=== PATIENT | female | born 1990 | race Caucasian/White ===

== ENCOUNTER 2016-05-01 18:39 | Emergency (ER) | payer SELFPAY ==
[~2016-05-01] VITALS: Ht 167.6 cm; Wt 99.3 kg
[~2016-05-01 18:39] MED LIST: CLON0.5T3 PO; CYCL10TA2 PO; ESOM40CA PO; NITR100C62 PO; PREN1TAB58 PO; VENL150C PO
[2016-05-01 19:36] LABS: BILIRUBIN,URINE NEGATIVE (NEG); GLUCOSE,URINE NEGATIVE (NEG); NITRITE,URINE NEGATIVE (NEG); PH,URINE 6.5; PROTEIN,URINE NEGATIVE (NEG-TRACE); UROBILINOGEN,URINE 0.2 mg/dL (0.2 mg/dL)
[2016-05-01 19:37] LABS: NEG OBC UR NEG; POS OBC UR POS
[2016-05-01 19:50] LABS: BACTERIA,URINE MODERATE /HPF (0-FEW); RBC,URINE RARE /HPF (0-2); SQUAMOUS EPITHELIAL CELL,UR OCC /LPF
--- NOTE | 2016-05-01 20:56 | RAD ---
PROCEDURE Endovaginal OB ultrasound. HISTORY Bilateral pelvic pain for 4 days. TECHNIQUE Endovaginal imaging was performed. COMPARISON None. FINDINGS Uterus measures 10.1 centimeters in length. The uterus is retroflexed. Cervical length is estimated at 3.19 centimeters. Left ovary measures 2.1 x 3.9 x 1.9 centimeters and demonstrates small follicle. Right ovary measures 2.7 x 1.5 x 1.5 centimeters and is unremarkable. Both ovaries are without evidence of torsion. No adnexal masses are seen. Single live intrauterine is identified with gestational sac, yolk sac, and embryonic pole identified. The mean crown-rump length is 1.03 centimeters corresponding to 7 weeks 1 day. Estimated date of delivery based on this measurement is December 17, 2016. IMPRESSION 1. Single live intrauterine . Average ultrasound age is 7 weeks 1 day. Estimated date of delivery is December 17, 2016. 2. No acute abnormality is identified. Electronically signed by: Johnnie Monk MD (May 01, 2016 20:54:19)
[2016-05-01] MEDS ORDERED: ACETAMINOPHEN 500 MG TABLET PO ONE (21:00)
--- NOTE | 2016-05-01 21:00 | PHYS DOC ---
Past Medical History Past Medical History: Anxiety, Depression, Other Additional Past Medical Histor: alcohol syndrome, PCOS, ovarian cyst, PANIC ATTACKS Past Surgical History: Other Additional Past Surgical Histo: left knee surgery, D&C Alcohol Use: None Drug Use: None Adult General Chief Complaint Chief Complaint: PELVIC PAIN HPI HPI 22-year-old female who is in the first trimester of her who presents with increasing vaginal discharge that is described as a thick white discharge the last several days as well as suprapubic cramping. She denies any vaginal bleeding. She denies any dysuria. She also states subjective lip discomfort that she describes a burning sensation. She denies any history of herpes. She states her lips have been very painful when she tries to eat or drink. She denies any nausea or vomiting she does states she's been able to stay hydrated with her symptoms. She does not appear to be in any distress whatsoever. She has had ultrasounds for this that have been normal per her. She follows up with Dr. Dc and has an appointment tomorrow but decided to come here for evaluation tonight because of her symptoms. She rates her abdominal pain a 6/10 on the pain scale. Review of Systems Review of Systems Constitutional: Denies fever or chills [] Eyes: Denies change in visual acuity, redness, or eye pain [] HENT: Denies nasal congestion or sore throat [] Respiratory: Denies cough or shortness of breath [] Cardiovascular: No additional information not addressed in HPI [] GI: Has abdominal pain, denies nausea, denies vomiting, denies bloody stools or diarrhea [] : Denies dysuria or hematuria [] Musculoskeletal: Denies back pain or joint pain [] Integument: Denies rash or skin lesions [] Neurologic: Denies headache, focal weakness or sensory changes [] Endocrine: Denies polyuria or polydipsia [] Current Medications Current Medications Current Medications Medications (Trade) Dose Ordered Sig/Sean Start Time Stop Time Status Last Admin Dose Admin Acetaminophen (Tylenol) 1,000 mg 1X ONCE 05/01/16 21:00 05/01/16 21:01 DC 05/01/16 21:08 1,000 MG Allergies Allergies Allergies Coded Allergies Type Severity Reaction Last Updated Verified Sulfa (Sulfonamide Antibiotics) Allergy Severe rash, throat swelling 04/01/16 Yes ciprofloxacin Allergy Severe rash, throat swelling 04/01/16 Yes Physical Exam Physical Exam Constitutional: Well developed, well nourished, no acute distress, non-toxic appearance. [] HENT: Normocephalic, atraumatic, bilateral external ears normal, oropharynx moist, no oral exudates, nose normal. [] Eyes: PERRLA, EOMI, conjunctiva normal, no discharge. [] Neck: Normal range of motion, no tenderness, supple, no stridor. [] Cardiovascular:Heart rate regular rhythm, no murmur [] Lungs & Thorax: Bilateral breath sounds clear to auscultation [] Abdomen: Bowel sounds normal, soft, moderate suprapubic tenderness to palpation , no masses, no pulsatile masses. [] Skin: Warm, dry, no erythema, no rash. [] Pelvic exam: Pelvic exam reveals a closed cervical os with a white discharge. There is no CMT or adnexal tenderness. Back: No tenderness, no CVA tenderness. [] Extremities: No tenderness, no cyanosis, no clubbing, ROM intact, no edema. [] Neurologic: Alert and oriented X 3, normal motor function, normal sensory function, no focal deficits noted. [] Psychologic: Affect normal, judgement normal, mood normal. [] Current Patient Data Vital Signs Vital Signs Date Time Temp Pulse Resp B/P Pulse Ox O2 Delivery O2 Flow Rate FiO2 05/01/16 19:20 98.2 95 18 126/84 97 Room Air 98.2 Lab Values Laboratory Tests Test 05/01/16 19:00 Urine Color Yellow Urine Clarity Clear Urine pH 6.5 Urine Specific [place] 1.020 Urine Protein Negativemg/dL (NEG-TRACE) Urine Glucose (UA) Negativemg/dL (NEG) Urine Ketones (Stick) Negativemg/dL (NEG) Urine Blood Negative (NEG) Urine Nitrite Negative (NEG) Urine Bilirubin Negative (NEG) Urine Urobilinogen Dipstick 0.2mg/dL (0.2 mg/dL) Urine Leukocyte Esterase Small (NEG) Urine RBC Rare/HPF (0-2) Urine WBC 1-4/HPF (0-4) Urine Squamous Epithelial Cells Occ/LPF Urine Bacteria Moderate/HPF (0-FEW) Urine Mucus Slight/LPF Urine Test Positive (NEG) EKG EKG [] Radiology/Procedures Radiology/Procedures Transvaginal OB ultrasound demonstrated the following: Uterus measures 10.1 centimeters in length. The uterus is retroflexed. Cervical length is estimated at 3.19 centimeters. Left ovary measures 2.1 x 3.9 x 1.9 centimeters and demonstrates small follicle. Right ovary measures 2.7 x 1.5 x 1.5 centimeters and is unremarkable. Both ovaries are without evidence of torsion. No adnexal masses are seen. Single live intrauterine is identified with gestational sac, yolk sac, and embryonic pole identified. The mean crown-rump length is 1.03 centimeters corresponding to 7 weeks 1 day. Estimated date of delivery based on this measurement is December 17, 2016. Course & Med Decision Making Course & Med Decision Making Pertinent Labs and Imaging studies reviewed. (See chart for details) This is 24-year-old female is having persistent abdominal pain and vaginal discharge is likely showing signs of bacterial vaginosis. A pelvic exam will be performed. A transvaginal ultrasound demonstrates a viable IUP at an estimated 7 weeks gestation. Her urine is negative for any sign of infection but will be sent for culture. Patient does have a follow-up appointment scheduled in the morning with her OB doctor for which I will instruct her to maintain. Dragon Disclaimer Dragon Disclaimer This electronic medical record was generated, in whole or in part, using a voice recognition dictation system. Departure Departure Impression: Primary Impression: Bacterial vaginosis Additional Impression: Abdominal pain Disposition: 01 HOME, SELF-CARE Condition: STABLE Referrals: DOT DC MD (PCP) Patient Instructions: Abdominal Pain During , [id number] Additional Instructions: Please take your medication as prescribed. Take your antibiotic as prescribed. Follow up with your OB doctor as discussed. Return to the ER if you develop any worsening of your symptoms. Scripts Metronidazole (Flagyl)500 Mg Tablet1 Tab PO BID #14 TAB Prov:GUANACO MENDOZA DO 05/01/16 Problem Qualifiers GUANACO MENDOZA DO May 01, 2016 21:00
[2016-05-01 21:04] VITALS: BP 119/59
[2016-05-01] MEDS ORDERED: METR500T PO (21:25)
== END 2016-05-01 21:57 | disposition home or self-care (01) ==
LOC: ER 18:39
DX: O23.591 Infection of other part of genital tract in pregnancy, first trimester (principal); N76.0 Acute vaginitis; B96.89 Other specified bacterial agents as the cause of diseases classified elsewhere; O99.341 Other mental disorders complicating pregnancy, first trimester; F32.9 Major depressive disorder, single episode, unspecified; F41.0 Panic disorder [episodic paroxysmal anxiety]; O99.89 Other specified diseases and conditions complicating pregnancy, childbirth and the puerperium; E28.2 Polycystic ovarian syndrome; Z88.2 Allergy status to sulfonamides; Z88.1 Allergy status to other antibiotic agents; Z3A.01 Less than 8 weeks gestation of pregnancy
CPT/HCPCS: 76817; 81001; 81025; 87086; 87491; 87591; 99285-25

== ENCOUNTER 2016-05-24 11:05 | Emergency (ER) | payer MEDICAID ==
[~2016-05-24] VITALS: Ht 167.6 cm; Wt 98.4 kg
[~2016-05-24 11:05] MED LIST changes: +METR500T PO
[2016-05-24 11:39] VITALS: BP 144/69
--- NOTE | 2016-05-24 12:22 | PHYS DOC ---
Past Medical History Past Medical History: Anxiety, Depression, Other Additional Past Medical Histor: alcohol syndrome, PCOS, ovarian cyst, PANIC ATTACKS Past Surgical History: Other Additional Past Surgical Histo: left knee surgery, D&C Alcohol Use: None Drug Use: None Adult General Chief Complaint Chief Complaint: DENTAL PROBLEM HPI HPI Patient is a 25 year old male presents emergency department stating that she's had nasal congestion for the last week. Patient states that she has started have upper dental pain with the last 2-3 days. She states that she has had times where she fell she's had a fever although has not adequately taken her temperature. Patient does states she is 11 weeks . She states that she called her CALL WORKER PERSON and they recommended that she comes to the emergency department they also recommended her to also have the baby checked as well. Patient states that she has had some nausea and vomiting within the last week. She denies any recent nausea vomiting within the last few days. She denies any diarrhea. Review of Systems Review of Systems Constitutional: fever Eyes: Denies change in visual acuity, redness, or eye pain [] HENT: nasal congestion and sore throat [] Respiratory: cough denies shortness of breath [] Cardiovascular: No additional information not addressed in HPI [] GI: Denies abdominal pain, nausea, vomiting, bloody stools or diarrhea [] : Denies dysuria or hematuria [] Musculoskeletal: Denies back pain or joint pain [] Integument: Denies rash or skin lesions [] Neurologic: Denies headache, focal weakness or sensory changes [] Allergies Allergies Allergies Coded Allergies Type Severity Reaction Last Updated Verified Sulfa (Sulfonamide Antibiotics) Allergy Severe rash, throat swelling 05/24/16 Yes ciprofloxacin Allergy Severe rash, throat swelling 05/24/16 Yes Physical Exam Physical Exam Constitutional: Well developed, well nourished, no acute distress, non-toxic appearance. [] HENT: Normocephalic, atraumatic, bilateral external ears normal, oropharynx moist, no oral exudates, nose normal. Normal tympanic membranes appear to be normal throat with no erythematous no exudate noted. Patient with no anterior cervical adenopathy noted. Patient does have frontal and maxillary sinus tenderness. Teeth appear to be intact no abscesses noted. Eyes: PERRLA, EOMI, conjunctiva normal, no discharge. [] Neck: Normal range of motion, no tenderness, supple, no stridor. [] Cardiovascular:Heart rate regular rhythm, no murmur [] Lungs & Thorax: Bilateral breath sounds clear to auscultation [] Skin: Warm, dry, no erythema, no rash. [] Back: No tenderness Extremities: No tenderness, no cyanosis, no clubbing, ROM intact, no edema. [] Neurologic: Alert and oriented X 3, normal motor function, normal sensory function, no focal deficits noted. [] Psychologic: Affect normal, judgement normal, mood normal. [] Current Patient Data Vital Signs Vital Signs Date Time Temp Pulse Resp B/P Pulse Ox O2 Delivery O2 Flow Rate FiO2 05/24/16 11:39 97.9 109 20 97 Room Air 97.9 EKG EKG [] Radiology/Procedures Radiology/Procedures [facility] [address] [place] [address] IMAGING REPORT Signed PATIENT: ANNAMARIE QUIÑONEZ ACCOUNT: [id number] : 1990 LOCATION: ER AGE: 25 SEX: F EXAM STATUS: REG ER ORD. PHYSICIAN: KIERA MCQUEEN NP REASON: unable obtain FHT PROCEDURE: OB < 14 WKS OB ultrasound study less than 14 weeks; transabdominal study. Comparison: May 01, 2016. Clinical indications: No heart tones in the emergency room. Findings: The uterus is anteverted in position. Single intrauterine fetus is seen in aquatic position within the fundus of the uterus. heart rate is 173 bpm. [place]-rump length is 3.76 cm which equals 10 weeks 5 days with an EDC of December 15, 2016. There has been normal interval growth from the previous sonogram. Neither ovary is visualized. No free fluid is seen. IMPRESSION: Single IUP with approximate gestational age of 10 weeks 5 days. DICTATED and SIGNED BY: MARY BONILLA MD DATE: 05/24/16 1328 CC: KIERA MCQUEEN NP; DOT ALVARADO MD ~ [] Course & Med Decision Making Course & Med Decision Making Pertinent Labs and Imaging studies reviewed. (See chart for details) Unable to obtain heart tones via Doppler. Ultrasound is been ordered. Completed with a Heart Rate of 173. Patient Will Be Discharged Home with Instructions for Sinusitis. Recommended Plenty of Fluids Such As Water or Gatorade Propel. Patient Will Be Provided with Amoxicillin. Recommendations to Follow-Up with Her Primary Care Physician or CALL WORKER PERSON within the Week. Signs and Symptoms to Return Back to Emergency Department As Been Provided. Recommended Tylenol for Pain and Discomfort. [] Dragon Disclaimer Dragon Disclaimer This electronic medical record was generated, in whole or in part, using a voice recognition dictation system. Departure Departure Impression: Primary Impression: Sinusitis, acute Disposition: HOME, SELF-CARE Condition: STABLE Referrals: DOT ALVARADO MD (PCP) Patient Instructions: Sinusitis, [id number] Additional Instructions: Activity as tolerated. Medication as prescribed. Tylenol for fever chills or generalized body aches and discomfort. Drink plenty of fluids such as water or Gatorade and propel. Follow-up with her CALL WORKER PERSON or primary care physician within the week. Return back to emergency percent symptoms of become worse. Scripts Amoxicillin 500 Mg Capsule1 Cap PO BID #20 CAP Prov:KIERA MCQUEEN NP 05/24/16 KIERA MCQUEEN NP May 24, 2016 12:22
--- NOTE | 2016-05-24 13:33 | RAD ---
OB ultrasound study less than 14 weeks; transabdominal study. Comparison: May 01, 2016. Clinical indications: No heart tones in the emergency room. Findings: The uterus is anteverted in position. Single intrauterine fetus is seen in aquatic position within the fundus of the uterus. heart rate is 173 bpm. [place]-rump length is 3.76 cm which equals 10 weeks 5 days with an EDC of December 15, 2016. There has been normal interval growth from the previous sonogram. Neither ovary is visualized. No free fluid is seen. IMPRESSION: Single IUP with approximate gestational age of 10 weeks 5 days.
[2016-05-24] MEDS ORDERED: AMOX500C PO (13:38)
== END 2016-05-24 13:47 | disposition home or self-care (01) ==
LOC: ER 11:05
DX: O99.511 Diseases of the respiratory system complicating pregnancy, first trimester (principal); J01.10 Acute frontal sinusitis, unspecified; J01.00 Acute maxillary sinusitis, unspecified; K08.89 Other specified disorders of teeth and supporting structures; O99.341 Other mental disorders complicating pregnancy, first trimester; F41.0 Panic disorder [episodic paroxysmal anxiety]; F32.9 Major depressive disorder, single episode, unspecified; Q86.0 Fetal alcohol syndrome (dysmorphic); Z88.2 Allergy status to sulfonamides; Z3A.10 10 weeks gestation of pregnancy; Z88.1 Allergy status to other antibiotic agents
CPT/HCPCS: 76801; 99284-25

== ENCOUNTER 2016-06-14 18:14 | Emergency (ER) | payer MEDICAID, OTHER ==
[~2016-06-14] VITALS: Ht 167.6 cm; Wt 99.8 kg
[~2016-06-14 18:14] MED LIST changes: +AMOX500C PO
[2016-06-14 19:10] VITALS: BP 127/72
[2016-06-14 19:58] LABS: OBC FLU VALID
[2016-06-14] MEDS ORDERED: FLUT9.9S NS (20:19)
[2016-06-14] MEDS ORDERED: PROAIR HFA8.5 GM INH (20:19)
--- NOTE | 2016-06-14 20:19 | PHYS DOC ---
Past Medical History Past Medical History: Anxiety, Depression, Other Additional Past Medical Histor: alcohol syndrome, PCOS, ovarian cyst, PANIC ATTACKS Past Surgical History: Other Additional Past Surgical Histo: left knee surgery, D&C Alcohol Use: None Drug Use: None Adult General Chief Complaint Chief Complaint: COUGH HPI HPI Patient is a 25 year old female who presents with fever and productive cough for 5 days. She reports temperature up to 100F. She also has sore throat, nasal congestion, left ear pain, and shortness of breath. She denies vomiting or diarrhea. Her is ill with similar symptoms. She did not receive a flu shot this season. She has a history of asthma but does not currently have an inhaler at home. She is currently with LMP 03/02/16. She is Ab1. She does not have a PCP. Her OB is Dr. Mayo. Review of Systems Review of Systems Constitutional: Reports fever. Eyes: Denies change in visual acuity, redness, or eye pain. [] HENT: Reports left ear pain, nasal congestion, and sore throat. Respiratory: Reports productive cough and shortness of breath. Cardiovascular: Denies chest pain, palpitations or edema. [] GI: Denies abdominal pain, nausea, vomiting, bloody stools or diarrhea. [] Musculoskeletal: Denies back pain or joint pain. [] Integument: Denies rash or skin lesions. [] Neurologic: Denies headache, focal weakness or sensory changes. [] Endocrine: Denies polyuria or polydipsia. [] Psych: Denies anxiety or depression. [] All systems reviewed and negative unless otherwise stated in the HPI. Allergies Allergies Allergies Coded Allergies Type Severity Reaction Last Updated Verified Sulfa (Sulfonamide Antibiotics) Allergy Severe rash, throat swelling 05/24/16 Yes ciprofloxacin Allergy Severe rash, throat swelling 05/24/16 Yes Physical Exam Physical Exam Constitutional: Well developed, well nourished, no acute distress, non-toxic appearance. [] HENT: Normocephalic, atraumatic, bilateral external ears normal, oropharynx moist, no oral exudates, nose normal. Bilateral TMs without erythema or bulging. There is mild posterior pharyngeal erythema with minimal tonsillar edema. Bilateral nasal turbinates are swollen and erythematous. Eyes: PERRLA, EOMI, conjunctiva normal, no discharge. [] Neck: Normal range of motion, no tenderness, supple, no stridor. [] Cardiovascular: Heart rate regular rhythm, no murmur [] Lungs & Thorax: Bilateral breath sounds clear to auscultation without wheezes, rales, or rhonchi. Skin: Warm, dry, no erythema, no rash. [] Neurologic: Alert and oriented X 3, normal motor function, normal sensory function, no focal deficits noted. [] Psychologic: Affect normal, judgement normal, mood normal. [] Current Patient Data Vital Signs Vital Signs Date Time Temp Pulse Resp B/P Pulse Ox O2 Delivery O2 Flow Rate FiO2 06/14/16 19:10 98.2 108 18 127/72 97 Room Air 98.2 Lab Values Laboratory Tests Test 06/14/16 19:23 Influenza Type A Antigen Negative (NEGATIVE) Influenza Type B Antigen Negative (NEGATIVE) Rapid strep negative EKG EKG [] Radiology/Procedures Radiology/Procedures [] Course & Med Decision Making Course & Med Decision Making Pertinent Labs and Imaging studies reviewed. (See chart for details) [] Dragon Disclaimer Dragon Disclaimer This electronic medical record was generated, in whole or in part, using a voice recognition dictation system. Departure Departure Impression: Primary Impression: URI (upper respiratory infection) Disposition: 01 HOME, SELF-CARE Condition: STABLE Referrals: UNKNOWN PCP NAME (PCP) Patient Instructions: Medicines During , Upper Respiratory Infection, Adult, [id number] Additional Instructions: Your flu and strep tests were negative today. You appear to have a viral upper respiratory infection. Antibiotics do not help to treat viral infections. Please use the prescribed inhaler as needed for cough or shortness of breath. Do not use more often than directed. Please follow-up with your OB doctor within the next week, sooner if concerns. Return to the emergency department if you have increased shortness of breath, high fevers, abdominal pain, vaginal bleeding, or other new or concerning symptoms. Scripts Fluticasone Propionate (Flonase Allergy Relief)9.9 Ml [place].susp2 Sprays NS DAILY #1 BOTTLE Prov:KEON BOYER 06/14/16 Albuterol Sulfate (Proair Hfa Inhaler)8.5 Gm Hfa.aer.ad1 Puff INH Q4HRS PRN SHORTNESS OF BREATH #1 INHALER Prov:KEON BOYER 06/14/16 Problem Qualifiers Primary Impression: URI (upper respiratory infection) URI type: unspecified viral URI Qualified Code: J06.9 - Acute upper respiratory infection, unspecified KEON BOYER Jun 14, 2016 20:19
[2016-06-15 06:26] LABS: NEGATIVE OBC STREP NEG; POSITIVE OBC STREP POS
== END 2016-06-14 20:28 | disposition home or self-care (01) ==
LOC: ER 18:14
DX: O99.512 Diseases of the respiratory system complicating pregnancy, second trimester (principal); Z3A.14 14 weeks gestation of pregnancy; J06.9 Acute upper respiratory infection, unspecified
CPT/HCPCS: 87070; 87804; 87880; 99284

== ENCOUNTER 2016-07-30 19:03 | Emergency (ER) | payer OTHER ==
[~2016-07-30] VITALS: Ht 165.1 cm; Wt 101.6 kg
[~2016-07-30 19:03] MED LIST changes: +FLUT9.9S NS; +PROAIR HFA8.5 GM INH
[2016-07-30 19:40] VITALS: BP 142/76
[2016-07-30] MEDS ORDERED: PENI500T PO (20:33)
--- NOTE | 2016-07-30 20:34 | PHYS DOC ---
Past Medical History Past Medical History: Asthma Additional Past Medical Histor: ALCOHOL SYNDROME Past Surgical History: Other Additional Past Surgical Histo: 3 X LEFT KNEE, DNC Additional Information: Nonsmoker Alcohol Use: None Drug Use: None Adult General Chief Complaint Chief Complaint: DENTAL PROBLEM HPI HPI Patient is a 26 year old female who presents with right-sided dental pain with right jaw swelling for 3 days. She reports pain in the right ear as well. She denies any fevers. Patient is currently 20 weeks . Her OB is Dr. Mayo. She does not have a PCP. Review of Systems Review of Systems Constitutional: Denies fever or chills. [] Eyes: Denies change in visual acuity, redness, or eye pain. [] HENT: Denies nasal congestion or sore throat. Reports dental pain and swelling. Respiratory: Denies cough or shortness of breath. [] Musculoskeletal: Denies back pain or joint pain. [] Integument: Denies rash or skin lesions. [] Neurologic: Denies headache, focal weakness or sensory changes. [] Allergies Allergies Allergies Coded Allergies Type Severity Reaction Last Updated Verified Sulfa (Sulfonamide Antibiotics) Allergy Severe rash, throat swelling 05/24/16 Yes ciprofloxacin Allergy Severe rash, throat swelling 05/24/16 Yes Physical Exam Physical Exam Constitutional: Well developed, well nourished, no acute distress, non-toxic appearance. [] HENT: Normocephalic, atraumatic, bilateral external ears normal, oropharynx moist, no oral exudates, nose normal. Bilateral TMs without erythema or bulging. There is no posterior pharyngeal erythema or tonsillar edema. There is tenderness over teeth #6 and #31 with obvious caries of tooth #6. There is no significant gingival edema or dental abscess. Eyes: PERRLA, EOMI, conjunctiva normal, no discharge. [] Neck: Normal range of motion, no tenderness, supple, no stridor. [] Skin: Warm, dry, no erythema, no rash. [] Neurologic: Alert and oriented X 3, normal motor function, normal sensory function, no focal deficits noted. [] Psychologic: Affect normal, judgement normal, mood normal. [] Current Patient Data Vital Signs Vital Signs Date Time Temp Pulse Resp B/P Pulse Ox O2 Delivery O2 Flow Rate FiO2 07/30/16 19:40 99.2 103 16 98 Room Air 99.2 EKG EKG [] Radiology/Procedures Radiology/Procedures [] Course & Med Decision Making Course & Med Decision Making Pertinent Labs and Imaging studies reviewed. (See chart for details) [] Masood Disclaimer Masood Disclaimer This electronic medical record was generated, in whole or in part, using a voice recognition dictation system. Departure Departure Impression: Primary Impression: Dentalgia Disposition: HOME, SELF-CARE Condition: STABLE Referrals: NO PCP (PCP) Patient Instructions: Dental Pain, [id number] Additional Instructions: Please complete all the prescribed antibiotics, even if your teeth are feeling better. Please take Tylenol for your pain. Use according to package instructions. Please follow-up with the dentist of your choice as soon as possible. Return to the emergency department if you have any new or concerning symptoms. Scripts Penicillin V Potassium 500 Mg Tablet1 Tab PO TID #30 TAB Prov:KEON BOYER 07/30/16 KEON BOYER Jul 30, 2016 20:34
[2016-07-30] MEDS ORDERED: ACETAMINOPHEN 500 MG TABLET PO ONE (21:00)
== END 2016-07-30 20:40 | disposition home or self-care (01) ==
LOC: ER 19:03
DX: O26.892 Other specified pregnancy related conditions, second trimester (principal); K08.89 Other specified disorders of teeth and supporting structures; J45.909 Unspecified asthma, uncomplicated; Z3A.20 20 weeks gestation of pregnancy; Z88.1 Allergy status to other antibiotic agents; Z88.2 Allergy status to sulfonamides
CPT/HCPCS: 99283

== ENCOUNTER 2016-09-01 05:20 | Observation (INO) | payer OTHER ==
[~2016-09-01 05:20] MED LIST changes: +PENI500T PO
[2016-09-01] MEDS ORDERED: IV RINGERS,LACTATED 1000ML 1,000 ML IV SCH (05:30)
[2016-09-01 05:47] LABS: BILIRUBIN,URINE NEGATIVE (NEG); GLUCOSE,URINE NEGATIVE (NEG); NITRITE,URINE NEGATIVE (NEG); PH,URINE 7.5; PROTEIN,URINE NEGATIVE (NEG-TRACE); UROBILINOGEN,URINE 0.2 mg/dL (0.2 mg/dL)
[2016-09-01 05:51] LABS: BARBITURATES NEG (NEG); BENZODIAZEPINES NEG (NEG); CANNABINOIDS NEG (NEG); COCAINE NEG (NEG); METHADONE NEG (NEG); OPIATES NEG (NEG); PHENCYCLIDINE NEG (NEG)
[2016-09-01 06:02] LABS: BACTERIA,URINE FEW /HPF (0-FEW); RBC,URINE 0 /HPF (0-2); SQUAMOUS EPITHELIAL CELL,UR MANY /LPF
[2016-09-01] MEDS ORDERED: hydrOXYzine PAMOATE 25 MG CAPSULE PO ONE (08:15)
== END 2016-09-01 09:32 | disposition home or self-care (01) ==
LOC: 3 SO LND 05:20
PROVIDERS: ADMIT Obstetrics & Gynecology; ATTEND Obstetrics & Gynecology
DX: O26.892 Other specified pregnancy related conditions, second trimester (principal); M54.5 Low back pain; R10.30 Lower abdominal pain, unspecified; R10.2 Pelvic and perineal pain; Z3A.26 26 weeks gestation of pregnancy
CPT/HCPCS: 81001; 87086; G0378; G0379; G0481; Q0177

== ENCOUNTER 2016-09-28 00:55 | Observation (INO) | payer OTHER ==
[2016-09-28] MEDS ORDERED: IV RINGERS,LACTATED 1000ML 1,000 ML IV SCH ×4 (01:22→05:08)
[2016-09-28] MEDS ORDERED: LORazepam 1 MG TABLET PO ONE (02:00)
[2016-09-28 02:59] LABS: BASO # 0.1 x10^3/uL (0.0-0.2); BASO % 1 % (0-3); EOS % 0 % (0-3); HEMATOCRIT 34.2 % (36.0-47.0); HEMOGLOBIN 11.3 g/dL (12.0-15.5); LYMPH # 2.6 x10^3/uL (1.0-4.8); LYMPH % 22 % (24-48); MEAN CORPUSCULAR HEMOGLOBIN 31 pg (25-35); MEAN CORPUSCULAR HGB CONC 33 g/dL (31-37); MEAN CORPUSCULAR VOLUME 94 fL (79-100); MONO % 9 % (0-9); NEUT % 67 % (31-73); PLATELET COUNT 413 x10^3/uL (140-400); RED BLOOD COUNT 3.66 x10^6/uL (3.50-5.40); WHITE BLOOD COUNT 11.5 x10^3/uL (4.0-11.0)
--- NOTE | 2016-09-28 03:58 | RAD ---
Examination: OB ultrasound limited HISTORY: History of , follow, ct abdomen COMPARISON: 05/24/2016 FINDINGS: Single living intrauterine identified with heart rate of 128 bpm Amniotic fluid index is 7.1 cm. movement is seen 4 chamber heart seen breathing seen 3 vessel CORD seen Cord insertion visualized. Fluid in the bladder, stomach, kidneys are visualized. brain and spine evaluation is limited. position is breech. Biparietal diameter measures 7.32 cm corresponding to 29 weeks and 3 days +/- 15 days. Head circumference measures 26.78 cm corresponding to 29 weeks and 1 day +/- 14 days. Abdominal circumference measures 24.1 cm corresponding to 28 weeks and 3 days +/- 15 days. Femur length measures 5.45 cm corresponding to 28 weeks and 6 days +/- 15 days Estimated weight 1265 +/- 187 g LMP 03/12/2017. Clinical age 28 weeks and 4 days with estimated date of delivery by LMP 12/17/2016. Ultrasound age is 29 weeks and 0 days with estimated delivery of 12/14/2016. IMPRESSION: 1. Single living intrauterine with heart rate of 128 bpm. 2. The amniotic fluid index is low measuring 7.1 cm. Electronically signed by: Horace Daigle MD (09/28/2016 3:55 AM)
[2016-09-28] MEDS ORDERED: ACETAMINOPHEN 500 MG TABLET PO ONE (08:30)
== END 2016-09-28 10:30 | disposition home or self-care (01) ==
LOC: 3 SO LND 00:55
PROVIDERS: ADMIT Obstetrics & Gynecology; ATTEND Obstetrics & Gynecology
DX: O26.893 Other specified pregnancy related conditions, third trimester (principal); M54.5 Low back pain; Z3A.29 29 weeks gestation of pregnancy
CPT/HCPCS: 36415; 76815; 85027; 85460; 96360; 96361; G0378; G0379; J7120

== ENCOUNTER 2016-09-28 10:32 | Emergency (ER) | payer OTHER ==
[~2016-09-28] VITALS: Ht 167.6 cm; Wt 104.3 kg
[2016-09-28 10:50] VITALS: BP 144/90
--- NOTE | 2016-09-28 11:23 | PHYS DOC ---
Past Medical History Past Medical History: Asthma Additional Past Medical Histor: ALCOHOL SYNDROME Past Surgical History: Other Additional Past Surgical Histo: 3 X LEFT KNEE, DNC Alcohol Use: None Drug Use: None Adult General Chief Complaint Chief Complaint: KNEE INJURY HPI HPI Patient is a 26 year old female currently 7 months and has been observed of the OB floor in the hospital who presents with mild left anterior knee pain. Patient states last night during this, she got scared and went outside and fell on her knee and abdomen. Patient denies any loss of consciousness. Any abdominal pain or vaginal bleeding. Patient is ambulating on the left lower extremity with no difficulties. Review of Systems Review of Systems Constitutional: Denies fever or chills [] Eyes: Denies change in visual acuity, redness, or eye pain [] HENT: Denies nasal congestion or sore throat [] Respiratory: Denies cough or shortness of breath [] Cardiovascular: No additional information not addressed in HPI [] GI: Abdomen : Denies dysuria or hematuria [] Musculoskeletal: Left knee pain Integument: Denies rash or skin lesions [] Neurologic: Denies headache, focal weakness or sensory changes [] Endocrine: Denies polyuria or polydipsia [] Allergies Allergies Allergies Coded Allergies Type Severity Reaction Last Updated Verified Sulfa (Sulfonamide Antibiotics) Allergy Severe rash, throat swelling 05/24/16 Yes ciprofloxacin Allergy Severe rash, throat swelling 05/24/16 Yes Physical Exam Physical Exam Constitutional: Well developed, well nourished, no acute distress, non-toxic appearance. [] HENT: Normocephalic, atraumatic, bilateral external ears normal, oropharynx moist, no oral exudates, nose normal. [] Eyes: PERRLA, EOMI, conjunctiva normal, no discharge. [] Neck: Normal range of motion, no tenderness, supple, no stridor. [] Cardiovascular:Heart rate regular rhythm, no murmur [] Lungs & Thorax: Bilateral breath sounds clear to auscultation [] Abdomen: Gravid abdomen. Bowel sounds normal, soft, no tenderness, no masses, no pulsatile masses. [] Skin: Warm, dry, no erythema, no rash. [] Back: No tenderness, no CVA tenderness. [] Extremities: Left anterior knee with a small bruise. Old healed surgical incision noted on the left anterior knee. Slight tenderness on palpation of the left anterior knee over the bruised area. Full range of motion to the left knee. Negative Letitia sign and negative Kvng's sign negative anterior- posterior drawer sign to the left knee. +2 left pedal pulse. Cap refill less than 2 seconds the left lower extremity. Sensation intact to the left lower extremity. Neurologic: Alert and oriented X 3, normal motor function, normal sensory function, no focal deficits noted. [] Psychologic: Affect normal, judgement normal, mood normal. [] Current Patient Data Vital Signs Vital Signs Date Time Temp Pulse Resp B/P (MAP) Pulse Ox O2 Delivery O2 Flow Rate FiO2 09/28/16 10:50 98.0 111 18 95 Room Air 98.0 EKG EKG [] Radiology/Procedures Radiology/Procedures [] Course & Med Decision Making Course & Med Decision Making Pertinent Labs and Imaging studies reviewed. (See chart for details) This is a 26-year-old female patient currently 7 months who presents today with left knee pain after falling last night. Patient has been cleared by the OB floor to be seen in the ED for her left knee pain. Patient is up and ambulating with no distress. We talked about benefits and risk of x-rays. At this point I do not feel patient needs an x-ray of the left knee especially considering she is up and walking and she is also 7 months . Patient agreed to this. We applied Tarik wrap to her knee. ED RN did the Tarik wrap. Neurovascular exam done by me is normal, cap refill less than 2 seconds. She was discharged with instructions to follow-up with orthopedic doctor as well as PCP or [facility] next week. Ice elevation encouraged. Tylenol for pain. Dragon Disclaimer Dragon Disclaimer This electronic medical record was generated, in whole or in part, using a voice recognition dictation system. Departure Departure Impression: Primary Impression: Left knee sprain Additional Impression: Fall from standing Disposition: 01 HOME, SELF-CARE Condition: STABLE Referrals: NO PCP (PCP) Follow-up with your [facility] and the provided orthopedic doctor in one week if pain continues ROSY ERIC II, MD You can follow-up with the provided [facility] [facility] in one week if pain continues Patient Instructions: Fall Prevention and Home Safety, Knee Sprain Additional Instructions: You were seen for left knee sprain after falling. Ice and elevate the extremity. You can take Tylenol for pain. Follow-up with your [facility] [employer] [facility]ER next week as well as the provided orthopedic doctor in one week if pain continues. Problem Qualifiers Primary Impression: Left knee sprain Encounter type: initial encounter Involved ligament of knee: unspecified ligament Qualified Codes: S83.92XA - Sprain of unspecified site of left knee, initial encounter Additional Impression: Fall from standing Encounter type: initial encounter Qualified Codes: W19.XXXA - Unspecified fall, initial encounter BENJAMIN PERRY MATH SPECIALIST Sep 28, 2016 11:23
== END 2016-09-28 11:27 | disposition home or self-care (01) ==
LOC: ER 10:32
DX: O9A.212 Injury, poisoning and certain other consequences of external causes complicating pregnancy, second trimester (principal); S83.92XA Sprain of unspecified site of left knee, initial encounter; O99.512 Diseases of the respiratory system complicating pregnancy, second trimester; J45.909 Unspecified asthma, uncomplicated; Z98.890 Other specified postprocedural states; Z88.2 Allergy status to sulfonamides; Z3A.28 28 weeks gestation of pregnancy; Z88.1 Allergy status to other antibiotic agents; W18.39XA Other fall on same level, initial encounter; Y93.89 Activity, other specified; Y92.89 Other specified places as the place of occurrence of the external cause; Y99.8 Other external cause status
CPT/HCPCS: 99282